=== PATIENT | female | born 1980 | race Caucasian/White ===

== ENCOUNTER → 2017-10-31 | Outpatient (CLI) | payer OTHER ==
[~2017-10-31] MED LIST: Aspirin EC325 MG PO; CALCIUM + D3 E1 EACH PO; CIPR500 PO; CRUTCH2 XX; Curcumin1 GM MC; DOCU100; DOCU100 PO; FERR325 PO; HYDR1TAB94 PO; MELO7.5 PO; Multivitamin1 EAC1 PO; NADO20; NADO40; Naprosyn500 MG PO; Norco 10-325 T1 EACH PO; OMEP20ER PO; Percocet 10-321 EACH PO; Percocet 5-3251 EACH PO; TOCO1000 PO; VITAMIN B12-FO1 EACH PO
== END | disposition home or self-care (01) ==
LOC: LAB SHORT 11:37 → LAB 11:37
DX: R30.0 Dysuria (principal)
CPT/HCPCS: 87086

== ENCOUNTER 2017-12-24 09:30 | Emergency (ER) | payer OTHER ==
[~2017-12-24] VITALS: Ht 177.8 cm; Wt 62.6 kg
[2017-12-24] MEDS ORDERED: CYCL10 PO (09:58)
[2017-12-24 10:41] LABS: BASOPHILS ABSOLUTE AUTO 0.04 K/mm3 (0.00-0.23); BASOPHILS PERCENT AUTO 0 % (0-2); EOSINOPHILS ABSOLUTE AUTO 0.01 K/mm3 (0.00-0.68); EOSINOPHILS PERCENT AUTO 0 % (0-6); Hematocrit 40.2 % (33.0-51.0); Hemoglobin 13.5 g/dL (11.5-16.0); IMMATURE GRAN ABSOLUTE AUTO 0.02 K/mm3 (0.00-0.10); IMMATURE GRAN PERCENT AUTO 0 % (0-1); LYMPHOCYTES ABSOLUTE AUTO 0.74 K/mm3 (0.84-5.20); LYMPHOCYTES PERCENT AUTO 8 % (21-46); MONOCYTES ABSOLUTE AUTO 0.83 K/mm3 (0.16-1.47); MONOCYTES PERCENT AUTO 9 % (4-13); Mean Corpuscular HGB 32.4 pg (26.0-34.0); Mean Corpuscular HGB Conc 33.6 g/dL (31.5-36.5); Mean Corpuscular Volume 96 fL (80-100); Mean Platelet Volume 10.4 fL (9.1-12.4); NEUTROPHILS ABSOLUTE AUTO 8.07 K/mm3 (1.96-9.15); NEUTROPHILS PERCENT AUTO 83 % (41-73); Platelet Count 124 K/mm3 (150-400); RDW Coefficient Variation 12.1 % (11.7-14.2); Red Blood Cell Count 4.17 M/mm3 (3.80-5.20); White Blood Cell Count 9.71 K/mm3 (4.00-11.30)
[2017-12-24 10:51] LABS: Alanine Aminotransfer (ALT/SGP 37 U/L (12-78); Albumin, Blood 4.5 g/dL (3.4-5.0); Albumin/Globulin Ratio 1.1 (0.8-1.8); Alk Phos 70 U/L (50-136); Anion Gap 9 mmol/L (6-16); Aspartate Aminotrans (AST/SGOT 52 U/L (12-37); Bilirubin, Total 2.2 mg/dL (0.1-1.0); Blood Urea Nitrogen 10 mg/dL (8-24); Bun/Creatinine Ratio 16.7 (12.0-20.0); CO2, Blood 26 mmol/L (21-32); Chloride, Blood 104 mmol/L (98-108); Ethanol (Alcohol), Blood, Med <3 mg/dL; Globulin, Blood 4.2 g/dL (2.2-4.0); Glomerular Filtration Rate >60 (60-); Glucose, Blood 113 mg/dL (70-99); Potassium, Blood 3.3 mmol/L (3.5-5.5); Sodium, Blood 139 mmol/L (136-145); Total Protein, Blood 8.7 g/dL (6.4-8.2)
[2017-12-24 11:00] LABS: International Normalized Ratio 1.18
[2017-12-24 12:23] LABS: Source, Urine Clean Catch
[2017-12-24 12:55] LABS: Appearance, Urine Clear (Clear); Bilirubin, Urine Neg (Neg); Blood, Urine Neg (Neg); Color, Urine Yellow (P-Yellow); Glucose Qualitative, Urine Neg (Neg); Ketones, Urine 1+ (Neg); Leukocyte Esterase, Urine Neg (Neg); Nitrite, Urine Neg (Neg); Protein, Urine Neg (Neg); Urobilinogen, Urine NORM (Normal)
[2017-12-24 13:45] LABS: U Amphetamine Screen Not Detected; U Barbituate Screen Not Detected; U Benzodiazapine Screen Not Detected; U Cannabinoids Screen DETECTED; U Cocaine Screen Not Detected; U Methadone Screen Not Detected; U Methamphetamine Screen Not Detected; U Opiates Screen Not Detected; U Phencyclidine Screen Not Detected
[2017-12-24 13:46] LABS: U Buprenorphine Screen Not Detected; U Oxycodone Screen Not Detected; U Propoxyphene Screen Not Detected
== END 2017-12-24 14:53 | disposition home or self-care (01) ==
LOC: ER 09:30
PROVIDERS: Emergency Medicine
DX: R40.4 Transient alteration of awareness (principal); R41.0 Disorientation, unspecified; R79.1 Abnormal coagulation profile; Z88.8 Allergy status to other drugs, medicaments and biological substances; Z79.899 Other long term (current) drug therapy
CPT/HCPCS: 36415; 80053; 81000; 81003; 82140; 85025; 85610; 96360; 96361; 99285-25; G0480; J7030

== ENCOUNTER 2018-12-02 08:31 | Emergency (ER) | payer OTHER ==
[~2018-12-02] VITALS: Ht 177.8 cm; Wt 63.5 kg
[~2018-12-02 08:31] MED LIST changes: +CYCL10 PO
[2018-12-02] MEDS ORDERED: OMEP20ER PO (08:50)
[2018-12-02] MEDS ORDERED: BENZ100A PO (09:51)
[2018-12-02] MEDS ORDERED: Sudogest30 MG PO (09:51)
== END 2018-12-02 09:59 | disposition home or self-care (01) ==
LOC: ER 08:31
DX: J06.9 Acute upper respiratory infection, unspecified (principal); D50.9 Iron deficiency anemia, unspecified; Z88.8 Allergy status to other drugs, medicaments and biological substances; Z79.899 Other long term (current) drug therapy; Z87.891 Personal history of nicotine dependence
CPT/HCPCS: 71046; 94640; 99283-25

== ENCOUNTER 2018-12-20 20:27 | Emergency (ER) | payer OTHER ==
[~2018-12-20] VITALS: Ht 177.8 cm; Wt 61.2 kg
[~2018-12-20 20:27] MED LIST changes: +BENZ100A PO; +Sudogest30 MG PO
[2018-12-20] MEDS ORDERED: Flonase 0.05% N16 GM (20:39)
[2018-12-20] MEDS ORDERED: ALBU90OI INH (20:39)
[2018-12-20] MEDS ORDERED: CYCL10 PO (20:40)
[2018-12-20] MEDS ORDERED: Roxicodone5 MG PO (22:07)
== END 2018-12-20 22:38 | disposition home or self-care (01) ==
LOC: ER 20:27
DX: S52.502A Unspecified fracture of the lower end of left radius, initial encounter for closed fracture (principal); K74.60 Unspecified cirrhosis of liver; D50.0 Iron deficiency anemia secondary to blood loss (chronic); Z88.8 Allergy status to other drugs, medicaments and biological substances; Z79.899 Other long term (current) drug therapy; Z87.891 Personal history of nicotine dependence; W10.9XXA Fall (on) (from) unspecified stairs and steps, initial encounter
CPT/HCPCS: 25605; 73100; 73110; 96372-59; 96374-59; 99152; 99283-25; A9270; J1170; J2704; J3010; J7030

== ENCOUNTER 2018-12-30 08:30 | Day surgery (SDC) | payer OTHER ==
[~2018-12-30] VITALS: Ht 177.8 cm; Wt 67.7 kg
[~2018-12-30 08:30] MED LIST changes: +ALBU90OI INH; +Flonase 0.05% N16 GM; +Roxicodone5 MG PO
--- NOTE | 2018-12-30 11:21 | NUR ---
12/30/18 1121 Samira Delatorre A GENERALIZED BRUISING TO LEFT HAND, ARM.
--- NOTE | 2018-12-30 12:39 | NUR ---
12/30/18 1239 Susan Grande PT STATES SHE WANTS TO USE THE RESTROOM PRIOR TO RECIEVING PAIN MEDICATION.
--- NOTE | 2018-12-30 13:18 | NUR ---
12/30/18 1318 Dariela Nuñez PATIENT WITH 20/10 LEFT ARM PAIN, MED C FENTANYL 25 MCG IV X [address] HUBER TO ROOM AND ADMINISTERED A BLOCK. PATIENT TOLERATED WELL. SO FAR REPORTS NO RELIEF OF PAIN, REMAINS AWAKE ALERT, RESP UNLABORE, SKIN P/W/D. VSS
== END 2018-12-30 14:20 | disposition home or self-care (01) ==
LOC: ORSCSDS 08:30
PROVIDERS: Orthopaedic Surgery
PROC: 0PSJ04Z Reposition Left Radius with Internal Fixation Device, Open Approach (ICD-10-PCS; principal; 2018-12-30 10:00)
DX: S52.572A Other intraarticular fracture of lower end of left radius, initial encounter for closed fracture (principal); F17.210 Nicotine dependence, cigarettes, uncomplicated; K75.4 Autoimmune hepatitis; K74.60 Unspecified cirrhosis of liver
CPT/HCPCS: 84703; A9270-GY; C1713; J0171; J0690; J2250; J2704; J3010; J7120

== ENCOUNTER → 2019-02-03 | Outpatient (CLI) | payer OTHER ==
[~2019-02-03] MED LIST changes: +Norco 5-325 Ta1 EACH PO
== END | disposition home or self-care (01) ==
LOC: LAB 11:43 → LAB SHORT 11:43
DX: R30.0 Dysuria (principal)
CPT/HCPCS: 87086

== ENCOUNTER 2019-02-24 09:51 | Emergency (ER) | payer OTHER ==
[~2019-02-24] VITALS: Ht 177.8 cm; Wt 65.8 kg
[~2019-02-24 09:51] MED LIST changes: -Norco 5-325 Ta1 EACH PO
[2019-02-24] MEDS ORDERED: Norco 5-325 Ta1 EACH PO (12:03)
== END 2019-02-24 12:23 | disposition home or self-care (01) ==
LOC: ER 09:51
DX: M79.672 Pain in left foot (principal); Z88.8 Allergy status to other drugs, medicaments and biological substances; Z79.899 Other long term (current) drug therapy; Z87.891 Personal history of nicotine dependence
CPT/HCPCS: 73630; 99283-25

== ENCOUNTER → 2019-06-18 | Outpatient (CLI) | payer OTHER ==
[~2019-06-18] MED LIST changes: +Norco 5-325 Ta1 EACH PO
== END | disposition home or self-care (01) ==
LOC: LAB 12:37 → LAB SHORT 12:37
DX: R35.0 Frequency of micturition (principal)
CPT/HCPCS: 87077; 87086; 87186

== ENCOUNTER 2019-07-11 21:19 | Inpatient (IN) | payer OTHER ==
[~2019-07-11] VITALS: Ht 175.3 cm; Wt 68.9 kg
[2019-07-11 22:26] LABS: BASOPHILS ABSOLUTE AUTO 0.15 K/mm3 (0.00-0.23); BASOPHILS PERCENT AUTO 1 % (0-2); EOSINOPHILS ABSOLUTE AUTO 0.08 K/mm3 (0.00-0.68); EOSINOPHILS PERCENT AUTO 1 % (0-6); Hematocrit 33.7 % (33.0-51.0); Hemoglobin 10.6 g/dL (11.5-16.0); IMMATURE GRAN ABSOLUTE AUTO 0.07 K/mm3 (0.00-0.10); IMMATURE GRAN PERCENT AUTO 1 % (0-1); LYMPHOCYTES ABSOLUTE AUTO 2.48 K/mm3 (0.84-5.20); LYMPHOCYTES PERCENT AUTO 19 % (21-46); MONOCYTES ABSOLUTE AUTO 1.39 K/mm3 (0.16-1.47); MONOCYTES PERCENT AUTO 11 % (4-13); Mean Corpuscular HGB 30.8 pg (26.0-34.0); Mean Corpuscular HGB Conc 31.5 g/dL (31.5-36.5); Mean Corpuscular Volume 98 fL (80-100); Mean Platelet Volume 10.9 fL (9.1-12.4); NEUTROPHILS ABSOLUTE AUTO 9.11 K/mm3 (1.96-9.15); NEUTROPHILS PERCENT AUTO 69 % (41-73); Platelet Count 218 K/mm3 (150-400); RDW Coefficient Variation 16.5 % (11.7-14.2); RDW Standard Deviation 59.4 fL (35.1-46.3); Red Blood Cell Count 3.44 M/mm3 (3.80-5.20); White Blood Cell Count 13.28 K/mm3 (4.00-11.30)
[2019-07-11 22:41] LABS: International Normalized Ratio 1.36; Prothrombin Time Results 14.3 Sec (9.7-11.5)
[2019-07-11 22:45] LABS: Alanine Aminotransfer (ALT/SGP 90 U/L (12-78); Albumin, Blood 3.5 g/dL (3.4-5.0); Albumin/Globulin Ratio 0.9 (0.8-1.8); Alk Phos 116 U/L (50-136); Anion Gap 12 mmol/L (6-16); Aspartate Aminotrans (AST/SGOT 98 U/L (12-37); Bilirubin, Total 2.1 mg/dL (0.1-1.0); Blood Urea Nitrogen 19 mg/dL (8-24); Bun/Creatinine Ratio 35.8 (12.0-20.0); CO2, Blood 23 mmol/L (21-32); Calcium, Blood 8.3 mg/dL (8.5-10.1); Chloride, Blood 106 mmol/L (98-108); Creatinine, Blood 0.53 mg/dL (0.40-1.00); Globulin, Blood 3.9 g/dL (2.2-4.0); Glomerular Filtration Rate >60 (60-); Glucose, Blood 118 mg/dL (70-99); Potassium, Blood 3.3 mmol/L (3.5-5.5); Sodium, Blood 141 mmol/L (136-145); Total Protein, Blood 7.4 g/dL (6.4-8.2)
--- NOTE | 2019-07-12 00:30 | NUR ---
REPORT FROM ER REPORT RECEIVED FROM RIZWANA SHANNON. SHE STATES PT IS PLEASANT, A&OX4, VS STABLE, C/O COFFEE GROUND EMESIS X4 ON 09/09/19 AND NONE IN ER, ALSO NO STOOLS IN ER. LUNGS CLEAR, HEART RATE REGULAR, SKIN PALE & INTACT. 20g RT FA, 18G RT AC WITH SANDOSTATIN INFUSING. PT RECEIVED PROTONIX BOLUS, 1l FLUID BOLUS, ROCEPHIN, BENADRYL, AND COMPAZINE IN ER. PT HX OF ESOPHAGEAL VARICIES, ANEMIA, LIVER CIRRHOSIS, AND ETOH USE/ABUSE. PT DRINKS 5-6 BEERS DAILY X3 MONTHS. THIS RN WILL BRING PT TO FLOOR WHEN ABLE.
[2019-07-12 03:39] LABS: Hematocrit 24.9 % (33.0-51.0); Hemoglobin 7.8 g/dL (11.5-16.0); Mean Corpuscular HGB Conc 31.3 g/dL (31.5-36.5); Mean Corpuscular Volume 99 fL (80-100); Mean Platelet Volume 11.4 fL (9.1-12.4); Platelet Count 106 K/mm3 (150-400); RDW Coefficient Variation 16.7 % (11.7-14.2); RDW Standard Deviation 59.8 fL (35.1-46.3); Red Blood Cell Count 2.52 M/mm3 (3.80-5.20); White Blood Cell Count 7.17 K/mm3 (4.00-11.30)
[2019-07-12 03:59] LABS: Anion Gap 7 mmol/L (6-16); Blood Urea Nitrogen 17 mg/dL (8-24); CO2, Blood 23 mmol/L (21-32); Calcium, Blood 7.2 mg/dL (8.5-10.1); Chloride, Blood 111 mmol/L (98-108); Creatinine, Blood 0.53 mg/dL (0.40-1.00); Glomerular Filtration Rate >60 (60-); Glucose, Blood 192 mg/dL (70-99); Potassium, Blood 3.7 mmol/L (3.5-5.5); Sodium, Blood 141 mmol/L (136-145)
--- NOTE | 2019-07-12 06:44 | NUR ---
SHIFT SUMMARY PT RESTS IN BED AFTER ADMIT FROM ER. a&O X4, PT DENIES PAIN/NAUSEA THIS SHIFT. NO N/V, NO STOOLS. HEART RATE NSR, REG WITH RATE 80-90s, LUNGS CTA WITH RR 14, BOWEL SOUNDS PRESENT, ABDOMEN SLIGHTLY ROUND, GUARDED, PAIN WITH DEEP PALPATION. SKIN REMAINS PALE & WARM THIS SHIFT. SCDs REFUSED R/T OLD FX/PINNING TO RT ANKLE. 20G RT FA WITH BANANA BAG COMPETED AND SANDOSTATIN INFUSING AT 25cc/HR. 18G RT AC WITH PROTONIX DRIP INFUSING @ 10CC/HR. PT AROUSES TO VOICE/TOUCH THIS AM. DENIES NEEDS, BED LOW, CALL LIGHT AND TABLE WITH PERSONAL PHONE WITHIN EASY REACH. WILL CONTINUE TO MONITOR THIS SHIFT.
--- NOTE | 2019-07-12 12:45 | NUR ---
History, Chart, Medications and Allergies reviewed before start of procedure. Patient confirms NPO status and agrees with scheduled surgery.
[2019-07-12 15:29] LABS: Hematocrit 23.7 % (33.0-51.0); Hemoglobin 7.3 g/dL (11.5-16.0); Mean Corpuscular HGB 30.8 pg (26.0-34.0); Mean Corpuscular HGB Conc 30.8 g/dL (31.5-36.5); Mean Corpuscular Volume 100 fL (80-100); Mean Platelet Volume 11.5 fL (9.1-12.4); Platelet Count 106 K/mm3 (150-400); RDW Coefficient Variation 17.2 % (11.7-14.2); RDW Standard Deviation 61.7 fL (35.1-46.3); Red Blood Cell Count 2.37 M/mm3 (3.80-5.20); White Blood Cell Count 5.23 K/mm3 (4.00-11.30)
--- NOTE | 2019-07-12 17:58 | NUR ---
SUMMARY Assumed care of pt at 0700. Bedside report received from April WAGONER. Pt on room air. SR per monitor. NPO until Dr Jasso consulted on pt. Provider in to see pt this AM, stated plan for EGD. EGD performed in early afternoon. Pt allowed to eat afterwards. Medical floor status without telemetry. Pt tolerated lunch and dinner without nausea or emesis. Pt independent in room. Will continue to closely monitor until care handoff and bedside report with oncoming RN.
[2019-07-12 21:09] LABS: Hematocrit 22.6 % (33.0-51.0); Hemoglobin 7.2 g/dL (11.5-16.0)
[2019-07-13 03:19] LABS: BASOPHILS ABSOLUTE AUTO 0.05 K/mm3 (0.00-0.23); BASOPHILS PERCENT AUTO 1 % (0-2); EOSINOPHILS ABSOLUTE AUTO 0.09 K/mm3 (0.00-0.68); EOSINOPHILS PERCENT AUTO 2 % (0-6); Hematocrit 25.9 % (33.0-51.0); Hemoglobin 8.2 g/dL (11.5-16.0); IMMATURE GRAN ABSOLUTE AUTO 0.02 K/mm3 (0.00-0.10); IMMATURE GRAN PERCENT AUTO 0 % (0-1); LYMPHOCYTES ABSOLUTE AUTO 1.14 K/mm3 (0.84-5.20); LYMPHOCYTES PERCENT AUTO 20 % (21-46); MONOCYTES ABSOLUTE AUTO 0.47 K/mm3 (0.16-1.47); MONOCYTES PERCENT AUTO 8 % (4-13); Mean Corpuscular HGB 31.5 pg (26.0-34.0); Mean Corpuscular HGB Conc 31.7 g/dL (31.5-36.5); Mean Corpuscular Volume 100 fL (80-100); Mean Platelet Volume 11.6 fL (9.1-12.4); NEUTROPHILS ABSOLUTE AUTO 3.86 K/mm3 (1.96-9.15); NEUTROPHILS PERCENT AUTO 69 % (41-73); Platelet Count 110 K/mm3 (150-400); RDW Coefficient Variation 17.7 % (11.7-14.2); RDW Standard Deviation 62.1 fL (35.1-46.3); White Blood Cell Count 5.63 K/mm3 (4.00-11.30)
--- NOTE | 2019-07-13 03:45 | NUR ---
SHIFT SUMMARY PATIENT SLEPT THROUGH NIGHT. VSS. NO C/O PAIN. HEMOBLOGIN BACK UP TO 8.3 THIS AM. NO S/S OF BLEEDING. AMBULATES SELF IN ROOM WELL. NPO SINCE MIDNIGHT. WILL CONTINUE TO MONITOR.
--- NOTE | 2019-07-13 08:28 | NUR ---
Received report from Pamella WAGONER. Patient sitting up in bed post Ultrasound. VSS see EMR. at bedside. She is on RA and lung sounds clear T/O. She is up independent. Dr Stark in room and will most likely discharge after US results. She is currently eating breakfast sitting up in bed. She tolerated am med without difficulty.
--- NOTE | 2019-07-13 10:27 | NUR ---
Patient is being discharged and Dr Jasso by and just added Abx. She is independent in room. IV's pulled intact. VSS see EMR.
[2019-07-13] MEDS ORDERED: PANT20 PO (10:28)
[2019-07-13] MEDS ORDERED: CIPR500 PO (10:29)
--- NOTE | 2019-07-13 10:36 | NUR ---
All personal belongings returned to patient. Patient given written discharge instructions and returned understanding. She refused transport to front and stated she felt fineand left and went home POV.
== END 2019-07-13 10:35 | disposition home or self-care (01) | DRG 441 ==
LOC: ER 21:19 → ICUW 21:20
PROVIDERS: Hospitalist; Internal Medicine Gastroenterology; Physician Assistant; ADMIT Internal Medicine
PROC: 0DJ08ZZ Inspection of Upper Intestinal Tract, Via Natural or Artificial Opening Endoscopic (ICD-10-PCS; principal; 2019-07-12 12:00)
DX: K76.6 Portal hypertension (principal); K22.11 Ulcer of esophagus with bleeding; R65.10 Systemic inflammatory response syndrome (SIRS) of non-infectious origin without acute organ dysfunction; D62 Acute posthemorrhagic anemia; I85.10 Secondary esophageal varices without bleeding; F17.210 Nicotine dependence, cigarettes, uncomplicated; E87.6 Hypokalemia; F10.10 Alcohol abuse, uncomplicated; K70.30 Alcoholic cirrhosis of liver without ascites
CPT/HCPCS: 36415; 76705; 80048; 80053; 81025; 82105; 85014; 85018; 85025; 85027; 85610; 85730; 86850; 86900; 86901; 93005; 93010; 96365; 96366; 96367; 96375; 96376; 99285-25; C9113; G0378; J0696; J0780; J1200; J2250; J2354; J2704; J2916; J3010; J3411; J3475; J7030; J7042; J7050; J7120

== ENCOUNTER → 2019-11-04 | Outpatient (CLI) | payer OTHER ==
[~2019-11-04] MED LIST changes: +PANT20 PO
[2019-11-04 11:18] LABS: BASOPHILS ABSOLUTE AUTO 0.05 K/mm3 (0.00-0.23); BASOPHILS PERCENT AUTO 1 % (0-2); EOSINOPHILS ABSOLUTE AUTO 0.02 K/mm3 (0.00-0.68); EOSINOPHILS PERCENT AUTO 0 % (0-6); Hematocrit 34.8 % (33.0-51.0); Hemoglobin 11.2 g/dL (11.5-16.0); IMMATURE GRAN ABSOLUTE AUTO 0.01 K/mm3 (0.00-0.10); IMMATURE GRAN PERCENT AUTO 0 % (0-1); LYMPHOCYTES ABSOLUTE AUTO 0.51 K/mm3 (0.84-5.20); LYMPHOCYTES PERCENT AUTO 11 % (21-46); MONOCYTES ABSOLUTE AUTO 0.37 K/mm3 (0.16-1.47); MONOCYTES PERCENT AUTO 8 % (4-13); Mean Corpuscular HGB 27.9 pg (26.0-34.0); Mean Corpuscular HGB Conc 32.2 g/dL (31.5-36.5); Mean Corpuscular Volume 87 fL (80-100); NEUTROPHILS ABSOLUTE AUTO 3.58 K/mm3 (1.96-9.15); NEUTROPHILS PERCENT AUTO 79 % (41-73); Platelet Count 149 K/mm3 (150-400); RDW Coefficient Variation 18.7 % (11.7-14.2); RDW Standard Deviation 59.7 fL (35.1-46.3); Red Blood Cell Count 4.01 M/mm3 (3.80-5.20); White Blood Cell Count 4.54 K/mm3 (4.00-11.30)
[2019-11-04 11:41] LABS: Alanine Aminotransfer (ALT/SGP 65 U/L (12-78); Albumin, Blood 3.8 g/dL (3.4-5.0); Albumin/Globulin Ratio 0.9 (0.8-1.8); Alk Phos 132 U/L (40-126); Anion Gap 13 mmol/L (6-16); Aspartate Aminotrans (AST/SGOT 97 U/L (12-37); Bilirubin, Total 2.4 mg/dL (0.1-1.0); Blood Urea Nitrogen 7 mg/dL (8-24); Bun/Creatinine Ratio 11.5 (12.0-20.0); CO2, Blood 22 mmol/L (21-32); Calcium, Blood 8.3 mg/dL (8.5-10.1); Chloride, Blood 103 mmol/L (98-108); Creatinine, Blood 0.61 mg/dL (0.40-1.00); Globulin, Blood 4.4 g/dL (2.2-4.0); Glomerular Filtration Rate >60 (60-); Glucose, Blood 100 mg/dL (70-99); Potassium, Blood 3.5 mmol/L (3.5-5.5); Sodium, Blood 138 mmol/L (136-145); Thyroid Stimulating Hormone 1.274 uIU/mL (0.360-4.800); Total Protein, Blood 8.2 g/dL (6.4-8.2)
== END | disposition home or self-care (01) ==
LOC: LAB EV 11:12 → LAB SHORT 11:12
PROVIDERS: Physician Assistant
DX: R53.83 Other fatigue (principal)
CPT/HCPCS: 80053; 83690; 84443; 85025

== ENCOUNTER 2020-01-19 07:11 | Day surgery (SDC) | payer OTHER ==
[~2020-01-19] VITALS: Ht 177.8 cm; Wt 67.4 kg
[~2020-01-19 07:11] MED LIST changes: +Norco 7.5-3251 EACH PO
[2020-01-19] MEDS ORDERED: PRENATAL TABLE1 EAC2 (08:15)
[2020-01-19] MEDS ORDERED: FURO20 PO (08:15)
[2020-01-19] MEDS ORDERED: CYCL10 (08:16)
--- NOTE | 2020-01-19 10:36 | NUR ---
01/19/20 1036 Susan Grande DELAYED ENTRY AGREEMENT BETWEEN PHYSICIAN AND ANESTHESIOLOGIST TO CANCEL SURGERY DUE TO LOW POTASSIUM AFTER STAT AM DRAW.
== END 2020-01-19 09:52 | disposition home or self-care (01) ==
LOC: ORSCSDS 07:11
DX: M25.532 Pain in left wrist (principal); Z53.9 Procedure and treatment not carried out, unspecified reason
CPT/HCPCS: J0171; J0690; J1100; J1885; J2250; J2405; J2704; J3010; J7120

== ENCOUNTER → 2020-02-02 | Outpatient (CLI) | payer OTHER ==
[~2020-02-02] MED LIST changes: +CYCL10; +Chantix1 MG PO; +FURO20 PO; +Klor-Con 1010 MEQ PO; +Nicoderm Cq1 EAC1 TOP; +PRENATAL TABLE1 EAC2 PO
[2020-02-02 20:07] LABS: Anion Gap 7 mmol/L (6-16); Blood Urea Nitrogen 3 mg/dL (8-24); Bun/Creatinine Ratio 5.6 (12.0-20.0); CO2, Blood 26 mmol/L (21-32); Calcium, Blood 7.7 mg/dL (8.5-10.1); Chloride, Blood 112 mmol/L (98-108); Creatinine, Blood 0.54 mg/dL (0.40-1.00); Glomerular Filtration Rate >60 (60-); Glucose, Blood 94 mg/dL (70-99); Sodium, Blood 145 mmol/L (136-145)
== END | disposition home or self-care (01) ==
LOC: LAB SHORT 19:35 → LAB 19:35
PROVIDERS: Nurse Practitioner Family
DX: E87.6 Hypokalemia (principal)
CPT/HCPCS: 80048

== ENCOUNTER 2020-04-04 07:07 | Emergency (ER) | payer OTHER ==
[~2020-04-04] VITALS: Ht 177.8 cm; Wt 68.0 kg
[2020-04-04] MEDS ORDERED: OXYC5 PO (09:18)
== END 2020-04-04 10:04 | disposition home or self-care (01) ==
LOC: ER 07:07
DX: S40.012A Contusion of left shoulder, initial encounter (principal); S00.83XA Contusion of other part of head, initial encounter; F17.200 Nicotine dependence, unspecified, uncomplicated; Y04.0XXA Assault by unarmed brawl or fight, initial encounter
CPT/HCPCS: 29505; 73562-LT; 81025; 99284-25; A9270